=== PATIENT | female | born 1955 | race Caucasian/White ===

== ENCOUNTER → 2021-09-06 | Day surgery (SDC) | payer BC ==
[~2021-09-06] VITALS: Ht 170.2 cm; Wt 67.9 kg
[~2021-09-06] MED LIST: BUFFERED ASPIR325 M1 PO; CALCIUM 600 MG1 EAC2 PO; LEVOTHYROXINE PO; LEXAPRO20 MG PO; ZEBETA 5MG5 MG PO; ZESTRIL2.5 MG PO; ZYRTEC 10MG10 MG PO
[2021-09-06 09:36] VITALS: BP 98/61; PULSE 56; TEMP 96.1
[2021-09-06 10:25] VITALS: BP 97/65; PULSE 63; TEMP 97.4
[2021-09-06 10:40] VITALS: BP 92/75; PULSE 60
[2021-09-06 10:55] VITALS: BP 111/68; PULSE 56
--- NOTE | 2021-09-06 11:10 | NUR ---
1025 - Pt returns from endo procedure via cart to [facility]. Pt ambulates from cart to recliner with RN assist. Monitors on and alarms set. Call light within reach. Report received MARISSA Hope. Pt alert and oriented. Pt requests cranberry juice. Pt denies any pain or nausea. 1040 - Pt taking food and drink well. No complications noted. 1055 - Discharge instructions given to pt. All questions answered to patient satisfaction. Handed to pt are a thank you card and discharge information. dr diego to see pt. 1110 - Pt transferred out of the hospital via wheelchair, to private vehicle driven by .
== END ==
LOC: SDCO 08:38
DX: Z12.11 Encounter for screening for malignant neoplasm of colon (principal); Z80.0 Family history of malignant neoplasm of digestive organs; I34.1 Nonrheumatic mitral (valve) prolapse; E05.00 Thyrotoxicosis with diffuse goiter without thyrotoxic crisis or storm; E03.9 Hypothyroidism, unspecified; I42.8 Other cardiomyopathies; I10 Essential (primary) hypertension; Z79.899 Other long term (current) drug therapy; Z79.01 Long term (current) use of anticoagulants; Z79.82 Long term (current) use of aspirin; Z87.891 Personal history of nicotine dependence; Z79.890 Hormone replacement therapy
CPT/HCPCS: J2704; J7120